=== PATIENT | male | born 1970 ===

== ENCOUNTER 2021-01-14 16:51 | Inpatient (IN) | payer OTHER ==
[~2021-01-14] VITALS: Ht 157.5 cm; Wt 92.1 kg
[2021-01-14 18:56] LABS: Albumin 3.5 g/dL (3.4-5.0); Calcium 9.3 mg/dL (8.5-10.1); Potassium 4.4 mmol/L (3.5-5.1)
[2021-01-14 18:59] LABS: BUN/Creatinine Ratio 13.9; Bilirubin, Total 1.6 mg/dL (0.2-1.0)
[2021-01-14 19:05] LABS: INR 1.2 (0.9-1.15); Partial Thromboplastin Time 33.6 sec (23.6-33.0)
[2021-01-14 20:20] LABS: Basophils # (auto) 0 10 ^3/uL (0-0.2); Eosinophils # (auto) 0.1 10 ^3/uL (0-0.8); Neutrophils # (auto) 2.4 10 ^3/uL (1.6-8.6); Nucleated Red Blood Cells % 0.1 %; Red Blood Cells 4.97 10^6/uL (4.5-5.90); White Blood Cell 3.5 10^3/uL (4.4-10.8)
[2021-01-14 20:21] LABS: Basophils % (auto) 0.5 % (0.0-2.0); Hematocrit 43.8 % (41.0-53.0); Hemoglobin 14.8 g/dL (13.5-17.5); Lymphocytes # (auto) 0.6 10 ^3/uL (0.4-5.4); Lymphocytes % (auto) 18.2 % (10.0-50.0); Mean Corpuscular Hemoglobin 29.8 pg (28.0-32.0); Mean Corpuscular Hgb Conc. 33.8 g/dL (32.0-36.0); Mean Corpuscular Volume 88.1 fL (80.0-100.0); Monocytes # (auto) 0.4 10 ^3/uL (0-1.3); Monocytes % (auto) 10.2 % (0.0-12.0); Neutrophils % (auto) 68.1 % (37.0-80.0); Red Cell Distribution Width 16.4 % (11.8-14.3)
[2021-01-15 02:12] VITALS: BP 128/106
[2021-01-15 02:27] VITALS: BP 136/75
[2021-01-15] MEDS: metFORMIN HYDROCHLORIDE 850 MG TAB PO SCH ×3 (02:46→21:34)
[2021-01-15 03:30] VITALS: BP 124/66
[2021-01-15] MEDS ORDERED: IOHEXOL 300 MG/ML 100ML BOTTLE IJ ONE (09:44)
[2021-01-15] MEDS: PANTOPRAZOLE 40 MG TAB PO SCH (09:49)
[2021-01-15 12:53] LABS: Basophils # (auto) 0 10 ^3/uL (0-0.2); Eosinophils # (auto) 0.1 10 ^3/uL (0-0.8); Hemoglobin 13.4 g/dL (13.5-17.5); Mean Corpuscular Hgb Conc. 34.1 g/dL (32.0-36.0); Monocytes # (auto) 0.2 10 ^3/uL (0-1.3); Nucleated Red Blood Cells % 0.2 %; White Blood Cell 2.2 10^3/uL (4.4-10.8)
[2021-01-15 12:54] LABS: Eosinophils % (auto) 4.3 % (0.0-7.0); Hematocrit 39.3 % (41.0-53.0); Lymphocytes # (auto) 0.4 10 ^3/uL (0.4-5.4); Lymphocytes % (auto) 19.8 % (10.0-50.0); Mean Corpuscular Hemoglobin 29.8 pg (28.0-32.0); Mean Corpuscular Volume 87.4 fL (80.0-100.0); Monocytes % (auto) 8.4 % (0.0-12.0); Neutrophils # (auto) 1.5 10 ^3/uL (1.6-8.6); Neutrophils % (auto) 66.5 % (37.0-80.0); Red Cell Distribution Width 16.2 % (11.8-14.3)
[2021-01-15 13:37] LABS: Ferritin 45.4 ng/mL (10-322)
[2021-01-15 22:21] VITALS: BP 121/71
[2021-01-15 23:15] VITALS: BP 121/71
[2021-01-16 05:04] VITALS: BP 119/60
[2021-01-16 07:54] LABS: Basophils # (auto) 0 10 ^3/uL (0-0.2); Eosinophils # (auto) 0.1 10 ^3/uL (0-0.8); Monocytes # (auto) 0.2 10 ^3/uL (0-1.3); Neutrophils # (auto) 1.2 10 ^3/uL (1.6-8.6); Nucleated Red Blood Cells % 0.2 %; White Blood Cell 2.1 10^3/uL (4.4-10.8)
[2021-01-16 07:57] LABS: Basophils % (auto) 0.9 % (0.0-2.0); Hematocrit 37.1 % (41.0-53.0); Hemoglobin 12.5 g/dL (13.5-17.5); Lymphocytes # (auto) 0.5 10 ^3/uL (0.4-5.4); Lymphocytes % (auto) 26.2 % (10.0-50.0); Mean Corpuscular Hemoglobin 29.3 pg (28.0-32.0); Mean Corpuscular Hgb Conc. 33.6 g/dL (32.0-36.0); Mean Corpuscular Volume 87.3 fL (80.0-100.0); Monocytes % (auto) 9.9 % (0.0-12.0); Red Blood Cells 4.26 10^6/uL (4.5-5.90); Red Cell Distribution Width 16.1 % (11.8-14.3)
[2021-01-16 08:00] VITALS: BP 114/73
[2021-01-16 08:08] LABS: Albumin 2.9 g/dL (3.4-5.0); Calcium 8.6 mg/dL (8.5-10.1); Potassium 4.1 mmol/L (3.5-5.1)
[2021-01-16 08:13] LABS: BUN/Creatinine Ratio 18.9; Bilirubin, Total 2.1 mg/dL (0.2-1.0); Total Protein 6.5 g/dL (6.4-8.2)
[2021-01-16 08:52] VITALS: BP 114/73
[2021-01-16] MEDS: metFORMIN HYDROCHLORIDE 850 MG TAB PO SCH (09:55)
[2021-01-16] MEDS: PANTOPRAZOLE 40 MG TAB PO SCH (09:55)
[2021-01-16 12:20] LABS: Hepatitis B Surface Antibody Positive
[2021-01-16 13:00] VITALS: BP 91/52
[2021-01-16 13:56] VITALS: BP 114/73
== END 2021-01-16 15:41 | DRG 433 ==
LOC: ER 16:51 → EEVIPCON 16:51 → OVERFLOW 21:23 → CENTRAL 01-15 20:10
PROVIDERS: ADMIT Internal Medicine; ATTEND Internal Medicine
PROC: 30233R1 Transfusion of Nonautologous Platelets into Peripheral Vein, Percutaneous Approach (ICD-10-PCS; principal; 2021-01-15)
DX: K70.30 Alcoholic cirrhosis of liver without ascites (principal); D61.818 Other pancytopenia; E11.9 Type 2 diabetes mellitus without complications; I10 Essential (primary) hypertension; Z20.822 Contact with and (suspected) exposure to COVID-19; Z83.3 Family history of diabetes mellitus; Z87.891 Personal history of nicotine dependence; Z86.19 Personal history of other infectious and parasitic diseases
CPT/HCPCS: 36415; 36430; 74177; 80053; 82607; 82728; 83615; 85025; 85610; 85730; 86038; 86147; 86703; 86706; 86803; 86850; 86900; 86901; 87040; 87340; 87426; G0378